=== PATIENT | male | born 1955 | race Caucasian/White ===

== ENCOUNTER → 2017-01-26 | Outpatient (CLI) | payer OTHER ==
[~2017-01-26] MED LIST: CELEBREX50 MG PO; CIPRODEX 0.3%-7.5 M1 OT; FLEXERIL10 MG PO; LEXAPRO10 MG PO; Lortab 5/500 501 TAB PO; NEXIUM40 MG PO; PREDNISONE20 MG PO; [UNRECOGNIZED DRUG - OTHER]
[2017-01-28 03:09] LABS: TESTOSTERONE FREE, (DIRECT) 9.5 pg/mL (6.6-18.1)
== END | disposition home or self-care (01) ==
LOC: LAB 15:46
PROVIDERS: Family Medicine
DX: N52.9 Male erectile dysfunction, unspecified (principal)

== ENCOUNTER → 2019-11-05 | Outpatient (CLI) | payer OTHER | END | disposition home or self-care (01) | LOC: COVID19 01:07 | DX: Z11.59 Encounter for screening for other viral diseases (principal) ==

== ENCOUNTER → 2021-01-07 | Outpatient (CLI) | payer OTHER ==
[2021-01-07 09:48] LABS: HEMATOCRIT 44.5 % (42.0-52.0); MEAN CELL VOLUME 97.4 fl (80.0-94.0); MEAN CORPUSCULAR HGB 32.4 pg (27.0-31.0); MEAN CORPUSCULAR HGB CONC 33.3 g/dl (33.0-37.0); MEAN PLATELET VOLUME 9.8 fl (9.6-12.3); RED BLOOD COUNT 4.57 10*6/uL (4.50-5.90); RED CELL DISTRI WIDTH 12.5 % (0-14.5)
[2021-01-07 10:11] LABS: ALBUMIN 3.7 gm/dl (3.1-4.5); ALKALINE PHOSPHATASE 59 U/L (45-117); BUN 15 mg/dl (7-24); CHLORIDE 110 mmol/L (98-107); CHOLESTEROL 238 mg/dL (<200); CREATININE 1.12 mg/dL (0.70-1.30); LDL CHOLESTEROL 161 mg/dL (9-159); POTASSIUM 4.7 mmol/L (3.5-5.1); SGOT/AST 14 IU/L (3-35); SGPT/ALT 24 U/L (12-78); SODIUM 138 mmol/L (136-145); TOTAL PROTEIN 7.4 gm/dL (6.4-8.2); TRIGLYCERIDES 128 mg/dl (<150)
== END | disposition home or self-care (01) ==
LOC: LAB 09:22
PROVIDERS: ATTEND Family Medicine
DX: Z12.5 Encounter for screening for malignant neoplasm of prostate (principal); E78.5 Hyperlipidemia, unspecified; J32.9 Chronic sinusitis, unspecified; E74.00 Glycogen storage disease, unspecified; F41.1 Generalized anxiety disorder

== ENCOUNTER → 2021-01-08 | Outpatient (CLI) | payer OTHER ==
[2021-01-10 07:05] LABS: PROSTATE SPECIFIC AG FREE 0.57 ng/mL; PROSTATE SPECIFIC AG, SERUM 3.9 ng/mL (0.0-4.0)
== END | disposition home or self-care (01) ==
LOC: LAB 14:00
PROVIDERS: ATTEND Family Medicine
DX: R97.20 Elevated prostate specific antigen [PSA] (principal)

== ENCOUNTER → 2021-02-15 | Outpatient (CLI) | payer OTHER ==
[2021-02-15 12:00] LABS: FREE T4 0.89 ng/dl (0.76-1.46); THYROID STIM HORMONE (HS) 0.724 uIU/ml (0.358-4.75)
[2021-02-15 13:00] LABS: VITAMIN D, 25-HYDROXY 33.2 ng/mL (30-100)
[2021-02-16 14:09] LABS: PROSTATE SPECIFIC AG FREE 0.59 ng/mL; PROSTATE SPECIFIC AG, SERUM 4.1 ng/mL (0.0-4.0)
[2021-02-17 02:06] LABS: TESTOSTERONE FREE, (DIRECT) 8.8 pg/mL (6.6-18.1)
== END | disposition home or self-care (01) ==
LOC: LAB 11:04
PROVIDERS: ATTEND Family Medicine
DX: E78.00 Pure hypercholesterolemia, unspecified (principal); E55.9 Vitamin D deficiency, unspecified; R53.83 Other fatigue; N52.9 Male erectile dysfunction, unspecified; R97.20 Elevated prostate specific antigen [PSA]

== ENCOUNTER → 2021-09-08 | Outpatient (CLI) | payer OTHER ==
[2021-09-08 10:47] LABS: HEMATOCRIT 40.6 % (42.0-52.0); MEAN CELL VOLUME 95.5 fl (80.0-94.0); MEAN CORPUSCULAR HGB 32.9 pg (27.0-31.0); MEAN CORPUSCULAR HGB CONC 34.5 g/dl (33.0-37.0); MEAN PLATELET VOLUME 9.3 fl (9.6-12.3); RED BLOOD COUNT 4.25 10*6/uL (4.50-5.90); RED CELL DISTRI WIDTH 12.4 % (0-14.5); WHITE BLOOD COUNT 4.7 10*3/uL (4.8-10.8)
[2021-09-08 11:02] LABS: ALKALINE PHOSPHATASE 56 U/L (45-117); BUN 11 mg/dl (7-24); CHLORIDE 109 mmol/L (98-107); CHOLESTEROL 232 mg/dL (<200); CREATININE 1.08 mg/dL (0.70-1.30); LDL CHOLESTEROL 149 mg/dL (9-159); SGOT/AST 11 IU/L (3-35); SGPT/ALT 18 U/L (12-78); SODIUM 140 mmol/L (136-145); TOTAL PROTEIN 7.1 gm/dL (6.4-8.2); TRIGLYCERIDES 88 mg/dl (<150)
[2021-09-08 13:55] LABS: VITAMIN D, 25-HYDROXY 36.7 ng/mL (30-100)
[2021-09-11 14:10] LABS: FREE PSA 0.532 ng/mL (.)
== END | disposition home or self-care (01) ==
LOC: LAB 10:32
PROVIDERS: ATTEND Family Medicine
DX: Z12.5 Encounter for screening for malignant neoplasm of prostate (principal); R97.20 Elevated prostate specific antigen [PSA]; E55.9 Vitamin D deficiency, unspecified; R53.83 Other fatigue; Z79.899 Other long term (current) drug therapy

== ENCOUNTER → 2022-03-17 | Outpatient (CLI) | payer OTHER ==
[2022-03-17 11:06] LABS: HEMATOCRIT 42.6 % (42.0-52.0); MEAN CELL VOLUME 95.7 fl (80.0-94.0); MEAN CORPUSCULAR HGB 32.6 pg (27.0-31.0); MEAN PLATELET VOLUME 9.3 fl (9.6-12.3); RED BLOOD COUNT 4.45 10*6/uL (4.50-5.90); RED CELL DISTRI WIDTH 12.4 % (0-14.5); WHITE BLOOD COUNT 4.2 10*3/uL (4.8-10.8)
[2022-03-17 11:34] LABS: ALKALINE PHOSPHATASE 53 U/L (46-116); BUN 13 mg/dl (9-23); CHLORIDE 104 mmol/L (98-107); CHOLESTEROL 209 mg/dL (<200); LDL CHOLESTEROL 133 mg/dL (9-159); POTASSIUM 4.5 mmol/L (3.4-5.1); SGPT/ALT 11 U/L (10-49); TOTAL PROTEIN 7.3 gm/dL (6.0-8.0); TRIGLYCERIDES 84 mg/dl (<150)
[2022-03-17 11:54] LABS: VITAMIN D, 25-HYDROXY 40.7 ng/mL (30-100)
[2022-03-26 20:06] LABS: % FREE PSA 14.1 % (.); FREE PSA 0.654 ng/mL (.)
== END | disposition home or self-care (01) ==
LOC: LAB 10:42
PROVIDERS: ATTEND Family Medicine
DX: E78.00 Pure hypercholesterolemia, unspecified (principal); E74.00 Glycogen storage disease, unspecified; F41.1 Generalized anxiety disorder; R53.83 Other fatigue; Z79.899 Other long term (current) drug therapy; R97.20 Elevated prostate specific antigen [PSA]

== ENCOUNTER → 2022-03-25 | Outpatient (CLI) | payer OTHER | END | disposition home or self-care (01) | LOC: CT 01:37 | PROVIDERS: ATTEND Family Medicine | DX: K51.90 Ulcerative colitis, unspecified, without complications (principal); K57.52 Diverticulitis of both small and large intestine without perforation or abscess without bleeding; K76.89 Other specified diseases of liver ==

== ENCOUNTER → 2023-12-28 | Outpatient (CLI) | payer OTHER ==
[2023-12-28 11:43] LABS: HEMATOCRIT 44.8 % (42.0-52.0); MEAN CELL VOLUME 97.8 fl (80.0-94.0); MEAN CORPUSCULAR HGB 32.3 pg (27.0-31.0); MEAN PLATELET VOLUME 9.7 fl (9.6-12.3); RED BLOOD COUNT 4.58 10*6/uL (4.50-5.90); RED CELL DISTRI WIDTH 12.4 % (0-14.5); WHITE BLOOD COUNT 4.8 10*3/uL (4.8-10.8)
[2023-12-28 12:07] LABS: ALKALINE PHOSPHATASE 63 U/L (46-116); BUN 12 mg/dl (9-23); CHLORIDE 106 mmol/L (98-107); CHOLESTEROL 265 mg/dL (<200); FREE T4 1.16 ng/dl (0.89-1.76); LDL CHOLESTEROL 187 mg/dL (9-159); POTASSIUM 4.4 mmol/L (3.4-5.1); SGPT/ALT 15 U/L (5-49); TOTAL PROTEIN 7.5 gm/dL (6.0-8.0); TRIGLYCERIDES 106 mg/dl (<150)
[2023-12-28 12:55] LABS: VITAMIN D, 25-HYDROXY 47.8 ng/mL (30-100)
== END | disposition home or self-care (01) ==
LOC: LAB 11:15
PROVIDERS: ATTEND Family Medicine
DX: Z12.5 Encounter for screening for malignant neoplasm of prostate (principal); R35.0 Frequency of micturition; E78.00 Pure hypercholesterolemia, unspecified; R42 Dizziness and giddiness; E55.9 Vitamin D deficiency, unspecified

== ENCOUNTER → 2024-03-22 | Outpatient (CLI) | payer OTHER ==
[2024-03-22 10:02] LABS: HEMATOCRIT 41.9 % (42.0-52.0); MEAN CELL VOLUME 97.9 fl (80.0-94.0); MEAN CORPUSCULAR HGB 33.2 pg (27.0-31.0); MEAN CORPUSCULAR HGB CONC 33.9 g/dl (33.0-37.0); MEAN PLATELET VOLUME 10.2 fl (9.6-12.3); RED BLOOD COUNT 4.28 10*6/uL (4.50-5.90); RED CELL DISTRI WIDTH 12.8 % (0-14.5); WHITE BLOOD COUNT 4.7 10*3/uL (4.8-10.8)
[2024-03-22 10:31] LABS: ALKALINE PHOSPHATASE 58 U/L (46-116); BUN 14 mg/dl (9-23); CHLORIDE 108 mmol/L (98-107); CHOLESTEROL 228 mg/dL (<200); CPK 91 U/L (34-171); LDL CHOLESTEROL 151 mg/dL (9-159); POTASSIUM 4.1 mmol/L (3.4-5.1); SGPT/ALT 17 U/L (5-49); TOTAL PROTEIN 6.9 gm/dL (6.0-8.0); TRIGLYCERIDES 111 mg/dl (<150)
== END | disposition home or self-care (01) ==
LOC: LAB 08:52
PROVIDERS: ATTEND Family Medicine
DX: E78.00 Pure hypercholesterolemia, unspecified (principal); I25.10 Atherosclerotic heart disease of native coronary artery without angina pectoris

== ENCOUNTER → 2024-04-04 | Outpatient (CLI) | payer MEDICARE | END | disposition home or self-care (01) | LOC: RAD 09:46 | PROVIDERS: ATTEND Family Medicine | DX: R05.3 Chronic cough (principal) ==

== ENCOUNTER → 2024-12-31 | Outpatient (CLI) | payer MEDICARE ==
[2024-12-31 09:24] LABS: MEAN CELL VOLUME 95.6 fl (80.0-94.0); MEAN CORPUSCULAR HGB 32.3 pg (27.0-31.0); MEAN PLATELET VOLUME 9.3 fl (9.6-12.3); NUCLEATED RED BLOOD CELL 0.0 % (0.0-0.0); NUCLEATED RED BLOOD CELL 0.0 10*3/uL (0.0-0.0); PLATELET COUNT AUTOMATED 140.0 10*3/uL (130-400); RED CELL DISTRI WIDTH 12.6 % (0-14.5)
[2024-12-31 09:52] LABS: BUN 11 mg/dl (9-23); LDL CHOLESTEROL 122 mg/dL (9-159); SGPT/ALT 12 U/L (5-49)
== END | disposition home or self-care (01) ==
LOC: LAB 08:49
PROVIDERS: ATTEND Family Medicine
DX: Z12.5 Encounter for screening for malignant neoplasm of prostate (principal); I10 Essential (primary) hypertension; E78.00 Pure hypercholesterolemia, unspecified; F41.1 Generalized anxiety disorder

== ENCOUNTER 2025-01-07 18:47 | Emergency (ER) | payer MEDICARE ==
[~2025-01-07] VITALS: Ht 172.7 cm; Wt 77.1 kg
[2025-01-07 19:08] VITALS: BP 123/62
[2025-01-07 19:46] LABS: BASO # 0.1 10*3/uL (0.0-0.1); BASO % 0.7 % (0.0-1.0); EOS # 0.1 10*3/uL (0.0-0.4); EOS % 1.3 % (1.0-4.0); MEAN CELL VOLUME 94.7 fl (80.0-94.0); MEAN CORPUSCULAR HGB 32.0 pg (27.0-31.0); MEAN PLATELET VOLUME 9.8 fl (9.6-12.3); MONO # 0.7 10*3/uL (0.1-1.0); MONO % 10.9 % (3.0-9.0); NEUT # 4.0 10*3/uL (2.3-7.9); NEUT % 59.3 % (47.0-73.0); NUCLEATED RED BLOOD CELL 0.0 % (0.0-0.0); NUCLEATED RED BLOOD CELL 0.0 10*3/uL (0.0-0.0); PLATELET COUNT AUTOMATED 137 10*3/uL (130-400); RED CELL DISTRI WIDTH 12.7 % (0-14.5)
[2025-01-07 20:07] LABS: BUN 15 mg/dl (9-23); SGPT/ALT 11 U/L (5-49)
[2025-01-07] MEDS ORDERED: Ondansetron Hydrochloride 4 MG TAB SL ONE (20:45)
== END 2025-01-07 21:40 | disposition home or self-care (01) ==
LOC: ED 18:47
PROVIDERS: Internal Medicine
DX: K80.20 Calculus of gallbladder without cholecystitis without obstruction (principal); K76.89 Other specified diseases of liver; D53.9 Nutritional anemia, unspecified; E78.00 Pure hypercholesterolemia, unspecified; F32.A Depression, unspecified

== ENCOUNTER → 2025-01-08 | Outpatient (CLI) | payer MEDICARE | END | disposition home or self-care (01) | LOC: US 13:05 | PROVIDERS: ATTEND Family Medicine | DX: K80.32 Calculus of bile duct with acute cholangitis without obstruction (principal); R10.10 Upper abdominal pain, unspecified ==

== ENCOUNTER → 2025-01-24 | Outpatient (CLI) | payer MEDICARE | END | disposition home or self-care (01) | LOC: RAD 08:30 | PROVIDERS: ATTEND Family Medicine | DX: M81.0 Age-related osteoporosis without current pathological fracture (principal) ==